=== PATIENT | male | born 1940 | race Caucasian/White ===

== ENCOUNTER → 2025-02-13 13:39 | Outpatient (REF) | payer MEDICARE, SELFPAY | LOC: RCS 13:39 | PROVIDERS: ATTENDING PHYSICIAN Family Medicine | DX: R42 Dizziness and giddiness (principal); I44.30 Unspecified atrioventricular block | CPT/HCPCS: 93306 ==

== ENCOUNTER → 2025-04-10 13:36 | Outpatient (REF) | payer MEDICARE, SELFPAY | LOC: PAVMRI 13:36 | PROVIDERS: ATTENDING PHYSICIAN Family Medicine | DX: R42 Dizziness and giddiness (principal) | CPT/HCPCS: 70553; A9575 ==